=== PATIENT | male | born 1955 | race Caucasian/White ===

== ENCOUNTER 2019-09-15 09:53 | Outpatient (RCR) | payer MEDICARE, OTHER, SELFPAY | END 2019-09-15 19:00 | disposition home or self-care (01) | LOC: PT 09:53 | PROVIDERS: Visit Provider Student in an Organized Health Care Education/Training Program | DX: Z99.3 Dependence on wheelchair (principal) | CPT/HCPCS: 97161 ==

== ENCOUNTER 2020-02-12 13:09 | Outpatient (RCR) | payer MEDICARE, OTHER, SELFPAY ==
--- NOTE | 2020-02-14 07:15 | HP.PTEVAL ---
Patient's Visit Information NAYAN CORNELIUS is a 64 year old M referred to Physical Therapy by Dr. Brandon Patel DO with a diagnosis of Spinal Cord Injury. Date of Evaluation: 02/12/20 Physical Therapist: Mayra Agustin DPT - Visit Plan Frequency: 1x/Week Duration: 1 Week Plan: Wheelchair evaluation - Subjective [facility] did a w/c and he had to return it due to not being correct. He is happy in the chair is in but needs modifications made. Has been in a chair for 33 years- fell out of a tree stand and had T5-T6 complete spinal cord injury. Has been in a manual w/c since the accident. Lives with a - set up for handicapped accessible. Fully I with transfers- does not stand pivot transfer. Has a w/c van and transfers in. Does have shoulder problems- wear and tear they ache at night. Worst: 7/10 Right is worse than left. Agg: using them. Best:4/10 Eases: Ibuprofen. Left Scapula has always really bothere him- phantom pain and cervical pain. Does not take any medication. Pretty healthy otherwise. 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 Is not contient- has never had pressure sores- can do his own weight shifting. Patient feels he needs power assist as he needs more assistance as the day progresses. There are days that he avoids getting outside due to his shoulder soreness and pain in the spine. - Objective Posture: FH, RS- can correct from upper thoracic does have slumped posture due to core weakness- is unable to maintain upright posture without assistance from UE. Gait: patient does no ambulation. Transfers: Unable to weightbear through lower extremeties- all transfers indep through sitting to different surfaces using UE for pull. Can do tricep pushup for weight shift but has pain in shoulders. ROM: no active ROM in LE- does have full ROM in the upper extremeties but has pain at end range flexion, abduction and IR. Strength: Core: poor, Scap: poor Shoulder: flexion: 4+/5, abd: 4+/5, IR: 4/5, ER: 4/5 Elbow: 5/5, Auxiliary Equipment Operator: 100 right 80 left. LE: 0/5. Sensation: intact in UE but not intact in LE. Upper Extremeties: fatigues quickly with uneven surface or hill propulsion. W/c Propulsion: is able but his shoulder pain increases as his distance and incline raises. Lower Extremeites: paresis of LE- does have moderate edema in his ankle- no structural deformities but does have increased tone in LE. - Goals Goal 1:: Patient will obstain w/c modifications as appropritate Goal Time Frame: 4-6 Weeks - Rehabilitation Potential Physical Therapy Diagnosis: Patient presents in a chair that requires modifications for his needs. Rehabilitation Potential: Good - Anticipated Interventions Patient/Client Instruction: Educate patient on: Benefits of Fitness Program Thank you for the opportunity to evaluate your patient. For Medicare and Medicare HMO plans, please review the plan of care and approve it. It will need to be FAXED BACK to us at [phone] for Medicare purposes. For Medicare only, by signing this I certify the plan of care. Please let me know if there are questions or concerns regarding this plan of care. Physician Signature: Date:
--- NOTE | 2020-03-25 14:45 | HP.PT.NRP ---
NAYAN Radha CORNELIUS was seen in my office for initial evaluation on 02/12/20. The following Plan of Care was established for this patient: Initial Frequency: 1x/Week Initial Duration: 1 Week Patient/Client Instruction: Educate patient on: Benefits of Fitness Program This patient was last seen in our office . Pertinent comments regarding their Physical therapy will appear below: At this point I will be discontinuing this patient from physical therapy. I would be happy to see this patient again in the future if found appropriate by the physician. Thank you! GIANA ByrneT
== END 2020-02-12 19:00 | disposition home or self-care (01) ==
LOC: PT 13:09
PROVIDERS: PCP Student in an Organized Health Care Education/Training Program; Referring Provider Student in an Organized Health Care Education/Training Program; Visit Provider Student in an Organized Health Care Education/Training Program
DX: S24.101D Unspecified injury at T1 level of thoracic spinal cord, subsequent encounter (principal); G82.20 Paraplegia, unspecified; M54.9 Dorsalgia, unspecified; M25.519 Pain in unspecified shoulder
CPT/HCPCS: 97162

== ENCOUNTER → 2022-01-13 | Outpatient (CLI) | payer MEDICARE, OTHER, SELFPAY ==
[2022-01-13 10:31] VITALS: BP 129/65; PULSE 78; RESP 16; O2SAT 98
[2022-01-13] MEDS: 0.9% NaCl Peripheral Flush Adult/Peds IV (10:45)
[2022-01-13] MEDS: 0.9% NaCl IVPB Med Flush (250 mL) 15 ML IV (10:45)
[2022-01-13 12:30] VITALS: BP 128/63; PULSE 74; RESP 12; O2SAT 98
== END | disposition home or self-care (01) ==
PROVIDERS: PCP Student in an Organized Health Care Education/Training Program; Referring Provider Internal Medicine Gastroenterology; Visit Provider Internal Medicine Gastroenterology
DX: D50.9 Iron deficiency anemia, unspecified (principal); K90.9 Intestinal malabsorption, unspecified
CPT/HCPCS: 96365; 96366; J1756; J7050; A4216

== ENCOUNTER → 2022-01-15 | Outpatient (CLI) | payer MEDICARE, OTHER, SELFPAY ==
[2022-01-15] MEDS: 0.9% NaCl Peripheral Flush Adult/Peds IV (10:10)
[2022-01-15] MEDS: 0.9% NaCl IVPB Med Flush (250 mL) 15 ML IV (10:11)
[2022-01-15 10:22] VITALS: BP 116/63; PULSE 81; RESP 12; O2SAT 94; BMI 23.3
== END | disposition home or self-care (01) ==
LOC: MEDOUTP 10:01
PROVIDERS: PCP Student in an Organized Health Care Education/Training Program; Referring Provider Internal Medicine Gastroenterology; Visit Provider Internal Medicine Gastroenterology
DX: D50.9 Iron deficiency anemia, unspecified (principal); K90.9 Intestinal malabsorption, unspecified
CPT/HCPCS: 96365; 96366; J1756; J7050; A4216

== ENCOUNTER → 2022-01-17 | Outpatient (CLI) | payer MEDICARE, OTHER, SELFPAY ==
--- NOTE | 2022-01-17 09:58 | US_ITS ---
EXAM: US ABDOMEN LIMITED, RIGHT UPPER QUADRANT CLINICAL INDICATION: RIGHT QUADRANT PAIN TECHNIQUE: Real-time ultrasound of the right upper quadrant with image documentation. This report was created using [employer] report generation technology. COMPARISON: None. FINDINGS: LIVER: Increased echogenicity of the liver is nonspecific but most commonly associated with hepatic steatosis. No hepatic masses. GALLBLADDER: Unremarkable. No shadowing gallstone. No gallbladder wall thickening is demonstrated. No pericholecystic fluid. Negative sonographic Francis''s sign. COMMON BILE DUCT: Unremarkable as visualized. The proximal common bile duct is within normal limits for the patient''s age. PANCREAS: Unremarkable as visualized. No focal abnormality is demonstrated in the pancreas. No pancreatic ductal dilatation. RIGHT KIDNEY: Unremarkable. There is no hydronephrosis. No shadowing calculus. No focal lesion or perinephric collection is demonstrated. US/Abdomen Limited IMPRESSION: Increased echogenicity of the liver is nonspecific but most commonly associated with hepatic steatosis. Electronically Signed: Kwaku Salazar MD ([place]) at 21:08 EDT ,
== END | disposition home or self-care (01) ==
PROVIDERS: PCP Student in an Organized Health Care Education/Training Program; Visit Provider Internal Medicine Gastroenterology
DX: R10.11 Right upper quadrant pain (principal)
CPT/HCPCS: 76705

== ENCOUNTER → 2022-01-20 | Outpatient (CLI) | payer MEDICARE, OTHER, SELFPAY ==
[2022-01-20] MEDS: 0.9% NaCl IVPB Med Flush (250 mL) 15 ML IV (10:15)
[2022-01-20] MEDS: 0.9% NaCl Peripheral Flush Adult/Peds IV (10:15)
[2022-01-20 10:31] VITALS: BP 101/52; PULSE 82; RESP 12; TEMP 35.9; O2SAT 99; BMI 23.0
[2022-01-20 12:42] VITALS: BP 119/68; PULSE 55; RESP 16; TEMP 36.1; O2SAT 99
== END | disposition home or self-care (01) ==
LOC: MEDOUTP 10:06
PROVIDERS: PCP Student in an Organized Health Care Education/Training Program; Referring Provider Internal Medicine Gastroenterology; Visit Provider Internal Medicine Gastroenterology
DX: D50.9 Iron deficiency anemia, unspecified (principal); K90.9 Intestinal malabsorption, unspecified
CPT/HCPCS: 96365; 96366; 82274; J1756; J7050; A4216

== ENCOUNTER → 2022-01-22 | Outpatient (CLI) | payer MEDICARE, OTHER, SELFPAY ==
[2022-01-22] MEDS: 0.9% NaCl IVPB Med Flush (250 mL) 15 ML IV (10:26)
[2022-01-22] MEDS: 0.9% NaCl Peripheral Flush Adult/Peds IV (10:26)
[2022-01-22 10:32] VITALS: BP 113/67; PULSE 64; RESP 16; TEMP 36.4; O2SAT 98
[2022-01-22 12:29] VITALS: BP 112/55; PULSE 63; TEMP 36.4
== END | disposition home or self-care (01) ==
LOC: MEDOUTP 09:55
PROVIDERS: PCP Student in an Organized Health Care Education/Training Program; Referring Provider Internal Medicine Gastroenterology; Visit Provider Internal Medicine Gastroenterology
DX: D50.9 Iron deficiency anemia, unspecified (principal)
CPT/HCPCS: 96365; 96366; J1756; J7050; A4216